=== PATIENT | female | born 1985 | race Caucasian/White ===

== ENCOUNTER 2017-08-22 18:20 | Emergency (ER) | payer OTHER ==
[~2017-08-22] VITALS: Ht 152.4 cm; Wt 77.1 kg
== END 2017-08-22 21:03 | disposition home or self-care (01) ==
LOC: ER 18:20
DX: J11.1 Influenza due to unidentified influenza virus with other respiratory manifestations (principal)

== ENCOUNTER 2018-07-01 09:33 | Emergency (ER) | payer OTHER ==
[~2018-07-01] VITALS: Ht 152.4 cm; Wt 66.2 kg
== END 2018-07-01 21:51 | disposition home or self-care (01) ==
LOC: ER 09:33
DX: S30.0XXA Contusion of lower back and pelvis, initial encounter (principal); W10.9XXA Fall (on) (from) unspecified stairs and steps, initial encounter; Y93.89 Activity, other specified; Y92.89 Other specified places as the place of occurrence of the external cause; Y99.8 Other external cause status

== ENCOUNTER 2019-02-24 09:18 | Emergency (ER) | payer OTHER ==
[~2019-02-24] VITALS: Ht 152.4 cm; Wt 68.0 kg
[2019-02-24] MEDS ORDERED: DOXYCYCLINE150 MG (09:30)
== END 2019-02-24 10:51 | disposition home or self-care (01) ==
LOC: ER 09:18
DX: N76.4 Abscess of vulva (principal); N75.8 Other diseases of Bartholin's gland

== ENCOUNTER 2022-02-26 11:33 | Emergency (ER) | payer OTHER ==
[~2022-02-26] VITALS: Ht 152.4 cm; Wt 72.6 kg
[~2022-02-26 11:33] MED LIST: DOXYCYCLINE150 MG
== END 2022-02-26 14:47 | disposition home or self-care (01) ==
LOC: ER 11:33
DX: M54.50 Low back pain, unspecified (principal)

== ENCOUNTER 2022-05-26 10:21 | Emergency (ER) | payer OTHER ==
[~2022-05-26] VITALS: Ht 152.4 cm; Wt 77.1 kg
[2022-05-26] MEDS ORDERED: ZITHROMAX500 MG PO (12:06)
[2022-05-26] MEDS ORDERED: KETO10TA2 PO (12:08)
== END 2022-05-26 12:17 | disposition home or self-care (01) ==
LOC: ER 10:21
DX: B34.9 Viral infection, unspecified (principal); Z20.822 Contact with and (suspected) exposure to COVID-19

== ENCOUNTER 2022-11-05 11:14 | Emergency (ER) | payer OTHER ==
[~2022-11-05] VITALS: Ht 152.4 cm; Wt 67.6 kg
[~2022-11-05 11:14] MED LIST changes: +KETO10TA2 PO; +ZITHROMAX500 MG PO
[2022-11-05] MEDS ORDERED: ZYRTEC10 MG PO (12:53)
[2022-11-05] MEDS ORDERED: FLOVENT HFA12 G1 IH (12:53)
[2022-11-05] MEDS ORDERED: SINGULAIR 10MG10 MG PO (12:53)
== END 2022-11-05 13:05 | disposition home or self-care (01) ==
LOC: ER 11:14
DX: J45.998 Other asthma (principal); Z20.822 Contact with and (suspected) exposure to COVID-19